=== PATIENT | male | born 1975 | race Caucasian/White ===

== ENCOUNTER 2019-12-26 13:49 | Inpatient (IN) | payer MEDICAID, OTHER, SELFPAY ==
[~2019-12-26] VITALS: Ht 180.3 cm; Wt 87.8 kg
[2019-12-26 14:41] LABS: Basophils # (auto) 0 10 ^3/uL (0-0.2); Basophils % (auto) 0.3 % (0.0-2.0); Eosinophils # (auto) 0.1 10 ^3/uL (0-0.8); Eosinophils % (auto) 2.5 % (0.0-7.0); Hematocrit 46.3 % (41.0-53.0); Hemoglobin 15.3 g/dL (13.5-17.5); Lymphocytes % (auto) 35.5 % (10.0-50.0); Mean Corpuscular Hemoglobin 28.5 pg (28.0-32.0); Mean Corpuscular Hgb Conc. 33.1 g/dL (32.0-36.0); Monocytes # (auto) 0.4 10 ^3/uL (0-1.3); Monocytes % (auto) 7.9 % (0.0-12.0); Neutrophils % (auto) 53.8 % (37.0-80.0); Nucleated Red Blood Cells % 0.1 %; Platelet Count (auto) 288 10^3/uL (140-450); Red Blood Cells 5.38 10^6/uL (4.5-5.90); Red Cell Distribution Width 14.8 % (11.8-14.3); White Blood Cell 5.6 10^3/uL (4.4-10.8)
[2019-12-26 14:58] LABS: Albumin 4.6 g/dL (3.4-5.0); BUN/Creatinine Ratio 15.5; Calcium 9.2 mg/dL (8.5-10.1); Potassium 4.1 mmol/L (3.5-5.1)
[2019-12-26 15:01] LABS: Bilirubin, Total 0.5 mg/dL (0.2-1.0); Total Protein 8.2 g/dL (6.4-8.2)
[2019-12-26] MEDS ORDERED: AZITHROMYCIN 500MG/ 250ML 250 ML IV ONE (16:45)
[2019-12-26] MEDS ORDERED: SODIUM CHLORIDE 0.9% 1,000 ML IV ONE (16:45)
[2019-12-26] MEDS ORDERED: ONDANSETRON HCL 4 MG/2 ML VIAL IV ONE (17:45)
[2019-12-26] MEDS ORDERED: SODIUM CHLORIDE 0.9% 1,000 ML IV SCH (21:37)
[2019-12-26] MEDS ORDERED: ACETAMINOPHEN 500 MG TAB PO PRN (21:45)
[2019-12-26] MEDS ORDERED: ONDANSETRON HCL 4 MG/2 ML VIAL IV PRN (21:45)
[2019-12-26] MEDS ORDERED: MORPHINE SULF INJ 2 MG/ML SYRINGE 1ML IV PRN (21:45)
[2019-12-26] MEDS ORDERED: HYDROcodone-ACET 5/325MG TAB PO PRN (21:45)
[2019-12-26] MEDS ORDERED: DOCUSATE SOD 100 MG CAP PO PRN (21:45)
[2019-12-26] MEDS ORDERED: ALBUTEROL SULF HFA 90MCG INH 200DOSE IN SCH (22:00)
[2019-12-26] MEDS: DOXYCYCLINE 100MG/250ML 250 ML IV SCH (22:23)
[2019-12-26 23:25] VITALS: BP 115/78
[2019-12-27] MEDS ORDERED: ASCO500T11 PO (00:44)
[2019-12-27 04:30] VITALS: BP 128/75
[2019-12-27 05:55] LABS: Basophils # (auto) 0.1 10 ^3/uL (0-0.2); Basophils % (auto) 1.4 % (0.0-2.0); Eosinophils # (auto) 0.2 10 ^3/uL (0-0.8); Eosinophils % (auto) 3.8 % (0.0-7.0); Hematocrit 40.6 % (41.0-53.0); Hemoglobin 13.5 g/dL (13.5-17.5); Lymphocytes # (auto) 1.5 10 ^3/uL (0.4-5.4); Lymphocytes % (auto) 33.8 % (10.0-50.0); Mean Corpuscular Hemoglobin 28.7 pg (28.0-32.0); Mean Corpuscular Hgb Conc. 33.3 g/dL (32.0-36.0); Mean Corpuscular Volume 86.3 fL (80.0-100.0); Monocytes # (auto) 0.4 10 ^3/uL (0-1.3); Monocytes % (auto) 8.2 % (0.0-12.0); Neutrophils # (auto) 2.4 10 ^3/uL (1.6-8.6); Neutrophils % (auto) 52.8 % (37.0-80.0); Platelet Count (auto) 236 10^3/uL (140-450); Red Blood Cells 4.71 10^6/uL (4.5-5.90); Red Cell Distribution Width 14.7 % (11.8-14.3); White Blood Cell 4.5 10^3/uL (4.4-10.8)
[2019-12-27 06:05] LABS: Urine Bacteria FEW /hpf (None Seen); Urine Blood Negative /uL (Negative); Urine Mucus FEW (None Seen); Urine WBC 1 /hpf (0 - 3)
[2019-12-27 06:12] LABS: Potassium 3.8 mmol/L (3.5-5.1)
[2019-12-27 06:18] LABS: Albumin 3.6 g/dL (3.4-5.0); BUN/Creatinine Ratio 20.3; Bilirubin, Total 0.6 mg/dL (0.2-1.0); Magnesium 2.2 mg/dL (1.6-2.6); Total Protein 6.2 g/dL (6.4-8.2)
[2019-12-27 08:00] VITALS: BP 113/74
[2019-12-27] MEDS ORDERED: CHOLECALCIFEROL (VITD3) 1,000IU=25mCg TAB PO SCH (10:00)
[2019-12-27] MEDS ORDERED: ENOXAPARIN SOD 40 MG/0.4 ML SYRINGE SC SCH (10:00)
[2019-12-27] MEDS: ZINC SULFATE 220mg CAP or TAB PO SCH (10:29)
[2019-12-27] MEDS: DOXYCYCLINE 100MG/250ML 250 ML IV SCH ×2 (10:29→21:45)
[2019-12-27] MEDS: ASCORBIC ACID 1,000 MG TAB PO SCH (10:30)
[2019-12-27 16:53] VITALS: BP 108/74
[2019-12-27 20:00] VITALS: BP 126/79
[2019-12-27 22:00] VITALS: BP 126/79
[2019-12-28 05:00] VITALS: BP 112/69
[2019-12-28 08:00] VITALS: BP 100/65
[2019-12-28] MEDS: DOXYCYCLINE 100MG/250ML 250 ML IV SCH (08:58)
[2019-12-28] MEDS: ASCORBIC ACID 1,000 MG TAB PO SCH (08:58)
[2019-12-28] MEDS: ZINC SULFATE 220mg CAP or TAB PO SCH (08:59)
[2019-12-28 12:00] VITALS: BP 122/96
[2019-12-28 16:11] VITALS: BP 122/96
== END 2019-12-28 17:05 | disposition home or self-care (01) | DRG 145 ==
LOC: ER 13:49 → OVERFLOW 13:50 → EAST 23:32 → TELE-EAST 23:52 → EAST 12-27 20:36
PROVIDERS: ADMIT Hospitalist; ATTEND Internal Medicine
DX: J20.8 Acute bronchitis due to other specified organisms (principal); Z20.828 Contact with and (suspected) exposure to other viral communicable diseases
CPT/HCPCS: 36415; 71046; 80053; 81001; 83605; 83735; 84484; 85025; 87040; 87070; 87804; 87880; 93005; G0378; J3490